=== PATIENT | female | born 1945 | race Caucasian/White ===

== ENCOUNTER 2018-10-06 16:09 | Inpatient (IN) | payer MEDICARE, BC ==
[~2018-10-06] VITALS: Ht 167.6 cm; Wt 111.1 kg
[2018-10-06 18:03] LABS: BASOPHILS % 0.6 % (0.0-2.0); EOSINOPHILS % 1.7 % (0.0-5.0); HEMATOCRIT. 39.6 % (36.0-48.0); HEMOGLOBIN. 13.2 g/dL (12.0-16.0); LYMPHOCYTES % 15.6 % (20.0-50.0); MEAN CORPUSCULAR HEMOGLOBIN 32.3 pg (28.0-32.0); MEAN PLATELET VOLUME 8.2 fl (7.4-10.4); MONOCYTES % 4.2 % (2.0-8.0); NEUTROPHILS % 77.9 % (40.0-76.0); PLATELET 317 x1000/uL (130-400); RED BLOOD CELL COUNT 4.08 mill/uL (4.2-5.4); RED CELL DISTRIBUTION WIDTH 13.6 % (11.6-14.6)
[2018-10-06 18:08] LABS: CHLORIDE 101 mEq/L (98-107)
[2018-10-06] MEDS ORDERED: DILTIAZEM HCL 180MG CAPSULE CD 24HR PO ONE (19:00)
[2018-10-06] MEDS ORDERED: DILTIAZEM HCL 5MG/ML 5ML VIAL IV ONE (19:00)
[2018-10-06] MEDS ORDERED: DIPHENHYDRAMINE 50MG/ML VIAL IV PRN (21:15)
[2018-10-06] MEDS ORDERED: DOCUSATE SODIUM 100MG CAPSULE PO PRN (21:15)
[2018-10-06] MEDS ORDERED: LORAZEPAM 2MG/ML CPJ IV PRN (21:15)
[2018-10-06] MEDS ORDERED: HYDROCODONE/ACETAMINOPHEN 5/325MG TABLET PO PRN (21:15)
[2018-10-06] MEDS ORDERED: GUAIFENESIN 200MG/10ML SUGAR FREE UDC PO PRN (21:15)
[2018-10-06] MEDS ORDERED: CLONIDINE 0.1MG TABLET PO PRN (21:15)
[2018-10-06] MEDS ORDERED: ACETAMINOPHEN 325MG TABLET PO PRN (21:15)
[2018-10-06] MEDS ORDERED: ONDANSETRON HCL 4MG/2ML INJ IV PRN (21:15)
[2018-10-06] MEDS ORDERED: MAGNESIUM/ALUMINUM HYDROXIDE/SIMETHICONE 30ML UDC PO PRN (21:15)
[2018-10-06] MEDS ORDERED: NA PHOS,M-B/NA PHOS,DI-BA ENEMA 118ML PR PRN (21:15)
[2018-10-06] MEDS ORDERED: IPRATROPIUM/ALBUTEROL 0.5-3(2.5)MG/3ML NEB INH PRN (21:15)
[2018-10-06] MEDS ORDERED: HYDROMORPHONE HCL/PF 2MG/ML CPJ IV PRN (21:30)
[2018-10-06 22:00] VITALS: BP 102/57
[2018-10-06] MEDS ORDERED: HYDRALAZINE 20MG/ML VIAL IV PRN (23:20)
[2018-10-06] MEDS ORDERED: DEXTROSE 50% WATER 50ML SYRINGE IV PRN (23:21)
[2018-10-07 00:26] LABS: CREATINE KINASE 37 IU/L (26-192)
[2018-10-07 00:27] LABS: CREATINE KINASE MB FRACTION < 1.0 ng/mL (0.5-3.6)
[2018-10-07] MEDS ORDERED: DYR5 MT (01:36)
[2018-10-07] MEDS ORDERED: ANAS1TAB7 MT (01:36)
[2018-10-07] MEDS ORDERED: LEVO75TA7 MT (01:36)
[2018-10-07] MEDS ORDERED: PROP60CA2 MT (01:36)
[2018-10-07] MEDS ORDERED: APIX5TAB MT (01:36)
[2018-10-07] MEDS ORDERED: ROPI0.5T MT (01:37)
[2018-10-07] MEDS ORDERED: SITA25TA3 MT (01:37)
[2018-10-07] MEDS ORDERED: ALPR-341 PO (01:37)
[2018-10-07] MEDS ORDERED: ALLO100T MT (01:37)
[2018-10-07] MEDS ORDERED: IRBE150T27 MT (01:37)
[2018-10-07] MEDS ORDERED: BUDE6HFA INH (01:37)
[2018-10-07] MEDS ORDERED: ROSU5TAB10 MT (01:37)
[2018-10-07] MEDS: SODIUM CHLORIDE 0.9% INJ 3ML FLUSH IVF SCH ×4 (06:00→22:00)
[2018-10-07 07:11] LABS: BASOPHILS % 0.4 % (0.0-2.0); EOSINOPHILS % 3.9 % (0.0-5.0); HEMATOCRIT. 35.7 % (36.0-48.0); LYMPHOCYTES % 29.7 % (20.0-50.0); MEAN CORPUSCULAR HEMOGLOBIN 32.6 pg (28.0-32.0); MEAN CORPUSCULAR VOLUME 97.2 fL (81.0-99.0); MEAN PLATELET VOLUME 8.1 fl (7.4-10.4); MONOCYTES % 5.3 % (2.0-8.0); NEUTROPHILS % 60.7 % (40.0-76.0); PLATELET 280 x1000/uL (130-400); RED BLOOD CELL COUNT 3.67 mill/uL (4.2-5.4); RED CELL DISTRIBUTION WIDTH 13.6 % (11.6-14.6)
[2018-10-07] MEDS: BLOOD SUGAR DIAGNOSTIC STRIP TEST SCH ×4 (07:30→21:21)
[2018-10-07 08:00] VITALS: BP 140/79
[2018-10-07] MEDS: INSULIN LISPRO 100 UNITS/ML SUBCUT SCH ×4 (08:00→21:00)
[2018-10-07 08:03] LABS: CHLORIDE 106 mEq/L (98-107)
[2018-10-07 08:21] LABS: LDL CHOLESTEROL 75 mg/dL (5-100)
[2018-10-07 08:22] LABS: CREATINE KINASE 33 IU/L (26-192); CREATINE KINASE MB FRACTION < 1.0 ng/mL (0.5-3.6); HDL CHOLESTEROL 42 mg/dL (40-59)
[2018-10-07 08:23] LABS: T4 FREE 1.25 ng/dL (0.76-1.46)
[2018-10-07 10:00] VITALS: BP_SYST 134; BP_SYST 94; BP_DIAS 64
[2018-10-07] MEDS: APIXABAN 5 MG TABLET PO SCH ×2 (10:06→18:36)
[2018-10-07] MEDS: SODIUM CHLORIDE 0.9% 1,000 ML IV SCH ×2 (11:22→22:35)
[2018-10-07 12:00] VITALS: BP 116/65
[2018-10-07] MEDS: LEVOTHYROXINE SODIUM 75MCG TABLET PO SCH (13:11)
[2018-10-07] MEDS: ANASTROZOLE 1 MG TABLET PO SCH (13:30)
[2018-10-07 14:00] VITALS: BP 132/70
[2018-10-07] MEDS ORDERED: MEDICATION NOT ON FORMULARY EA (Alprazolam 1 MG) PO SCH (14:00)
[2018-10-07] MEDS: ALLOPURINOL 100 MG TABLET PO SCH (14:37)
[2018-10-07 16:00] VITALS: BP 125/55
[2018-10-07 16:36] LABS: T4 FREE 1.22 ng/dL (0.76-1.46)
[2018-10-07 16:37] LABS: CREATINE KINASE 44 IU/L (26-192); CREATINE KINASE MB FRACTION < 1.0 ng/mL (0.5-3.6)
[2018-10-07] MEDS: ROPINIROLE HCL 1MG TABLET PO SCH ×2 (16:42→21:01)
[2018-10-07] MEDS: BUDESONIDE 0.5MG/2ML NEB HHN SCH (17:00)
[2018-10-07] MEDS ORDERED: BUDESONIDE 0.5MG/2ML NEB HHN SCH (17:30)
[2018-10-07 18:00] VITALS: BP_SYST 122; BP_SYST 136; BP_DIAS 74; BP_DIAS 85
[2018-10-07] MEDS ORDERED: ALBUTEROL (0.5%) 2.5MG/0.5ML NEB HHN SCH (18:00)
[2018-10-07 20:54] LABS: CLARITY URINE CLEAR (CLEAR); KETONES URINE NEGATIVE (NEGATIVE); LEUKOCYTE ESTERASE URINE TRACE (NEGATIVE); NITRITE URINE NEGATIVE (NEGATIVE); OCCULT BLOOD URINE NEGATIVE (NEGATIVE); PROTEIN URINE NEGATIVE (NEGATIVE); SPECIFIC GRAVITY URINE 1.009 (1.005-1.030); UROBILINOGEN URINE 0.2 E.U./dL (0.2-1.0)
[2018-10-07] MEDS: ATORVASTATIN CALCIUM 10MG TABLET PO SCH (21:01)
[2018-10-07 21:10] LABS: OPIATES URINE SCREEN NEGATIVE (NEGATIVE); PHENCYCLIDINE URINE SCREEN NEGATIVE (NEGATIVE)
[2018-10-07 21:11] LABS: *AMPHETAMINES SCREEN URINE NEGATIVE (NEGATIVE); *BARBITURATES SCREEN URINE NEGATIVE (NEGATIVE); *BENZODIAZEPINES SCREEN URINE PRESUMTIVE POSITIVE (NEGATIVE); *COCAINE SCREEN URINE NEGATIVE (NEGATIVE); CANNABINOID URINE SCREEN NEGATIVE (NEGATIVE); METHADONE URINE SCREEN NEGATIVE (NEGATIVE)
[2018-10-07 21:33] LABS: COLOR URINE YELLOW (YELLOW)
[2018-10-08] VITALS (8 sets, daily range): BP systolic 124–170; BP diastolic 54–87
[2018-10-08 00:37] LABS: CREATINE KINASE 37 IU/L (26-192)
[2018-10-08 00:38] LABS: CREATINE KINASE MB FRACTION < 1.0 ng/mL (0.5-3.6)
[2018-10-08] MEDS: BUDESONIDE 0.5MG/2ML NEB HHN SCH (05:22)
[2018-10-08] MEDS: SODIUM CHLORIDE 0.9% INJ 3ML FLUSH IVF SCH ×3 (06:00→21:51)
[2018-10-08] MEDS: ROPINIROLE HCL 1MG TABLET PO SCH ×3 (06:00→21:36)
[2018-10-08] MEDS: BLOOD SUGAR DIAGNOSTIC STRIP TEST SCH ×4 (07:30→21:49)
[2018-10-08] MEDS: INSULIN LISPRO 100 UNITS/ML SUBCUT SCH ×4 (07:52→21:00)
[2018-10-08] MEDS: LEVOTHYROXINE SODIUM 75MCG TABLET PO SCH (08:07)
[2018-10-08] MEDS: APIXABAN 5 MG TABLET PO SCH ×2 (08:08→18:00)
[2018-10-08] MEDS: ALLOPURINOL 100 MG TABLET PO SCH (08:08)
[2018-10-08 09:35] LABS: CREATINE KINASE 37 IU/L (26-192)
[2018-10-08 09:36] LABS: CREATINE KINASE MB FRACTION < 1.0 ng/mL (0.5-3.6)
[2018-10-08] MEDS: METOPROLOL TARTRATE 50MG TABLET PO SCH ×2 (11:16→21:37)
[2018-10-08] MEDS: ANASTROZOLE 1 MG TABLET PO SCH (11:16)
[2018-10-08] MEDS: SODIUM CHLORIDE 0.9% 1,000 ML IV SCH ×2 (15:03→21:43)
[2018-10-08] MEDS: ATORVASTATIN CALCIUM 10MG TABLET PO SCH (21:36)
[2018-10-09] MEDS: SODIUM CHLORIDE 0.9% 1,000 ML IV SCH (03:51)
[2018-10-09 04:00] VITALS: BP 132/84
[2018-10-09] MEDS: ROPINIROLE HCL 1MG TABLET PO SCH (05:50)
[2018-10-09] MEDS: SODIUM CHLORIDE 0.9% INJ 3ML FLUSH IVF SCH (05:54)
[2018-10-09 06:29] LABS: BASOPHILS % 0.4 % (0.0-2.0); EOSINOPHILS % 3.9 % (0.0-5.0); HEMATOCRIT. 30.8 % (36.0-48.0); HEMOGLOBIN. 10.3 g/dL (12.0-16.0); LYMPHOCYTES % 28.5 % (20.0-50.0); MEAN CORPUSCULAR HEMOGLOBIN 32.5 pg (28.0-32.0); MONOCYTES % 5.7 % (2.0-8.0); NEUTROPHILS % 61.5 % (40.0-76.0); PLATELET 228 x1000/uL (130-400); RED BLOOD CELL COUNT 3.18 mill/uL (4.2-5.4); RED CELL DISTRIBUTION WIDTH 13.7 % (11.6-14.6)
[2018-10-09] MEDS: LEVOTHYROXINE SODIUM 75MCG TABLET PO SCH (06:31)
[2018-10-09] MEDS: BLOOD SUGAR DIAGNOSTIC STRIP TEST SCH (06:37)
[2018-10-09] MEDS: INSULIN LISPRO 100 UNITS/ML SUBCUT SCH (07:44)
[2018-10-09 08:00] VITALS: BP 141/75
[2018-10-09] MEDS ORDERED: POTASSIUM CHLORIDE 20MEQ TABLET SR PO SCH (08:00)
[2018-10-09 08:14] VITALS: BP 141/75
[2018-10-09] MEDS: ANASTROZOLE 1 MG TABLET PO SCH (08:36)
[2018-10-09] MEDS: ALLOPURINOL 100 MG TABLET PO SCH (08:36)
[2018-10-09] MEDS: APIXABAN 5 MG TABLET PO SCH (08:36)
[2018-10-09] MEDS: METOPROLOL TARTRATE 50MG TABLET PO SCH (08:36)
[2018-10-09] MEDS: BUDESONIDE 0.5MG/2ML NEB HHN SCH (08:53)
[2018-10-09 10:05] VITALS: BP 137/80
== END 2018-10-09 10:24 | disposition home or self-care (01) | DRG 70 ==
LOC: ER 16:09 → 5EST 19:21 → EDBEDREQ 19:23 → EDBEDREQSVC 19:23 → ENRESERV 20:42
PROVIDERS: ADMIT Internal Medicine; ATTEND Internal Medicine
DX: G93.41 Metabolic encephalopathy (principal); N17.0 Acute kidney failure with tubular necrosis; E46 Unspecified protein-calorie malnutrition; I13.0 Hypertensive heart and chronic kidney disease with heart failure and stage 1 through stage 4 chronic kidney disease, or unspecified chronic kidney disease; E11.22 Type 2 diabetes mellitus with diabetic chronic kidney disease; E03.9 Hypothyroidism, unspecified; E78.5 Hyperlipidemia, unspecified; I25.10 Atherosclerotic heart disease of native coronary artery without angina pectoris; I48.91 Unspecified atrial fibrillation; F41.9 Anxiety disorder, unspecified; I50.9 Heart failure, unspecified; J45.909 Unspecified asthma, uncomplicated; N18.9 Chronic kidney disease, unspecified; Z79.01 Long term (current) use of anticoagulants; Z79.51 Long term (current) use of inhaled steroids; Z79.84 Long term (current) use of oral hypoglycemic drugs; Z85.3 Personal history of malignant neoplasm of breast; Z90.10 Acquired absence of unspecified breast and nipple; Z90.710 Acquired absence of both cervix and uterus; Z79.899 Other long term (current) drug therapy; Z68.39 Body mass index [BMI] 39.0-39.9, adult
CPT/HCPCS: 36415; 71045; 80048; 80061; 80305; 82550; 82553; 82962; 83036; 83880; 84439; 84443; 84484; 85379; 93005; 93306; 93880; 93970; 96374; 99291; J1815; J3490; J7030; J7611; J7620; J7626